=== PATIENT | male | born 1995 | race Caucasian/White ===

== ENCOUNTER 2016-12-16 02:40 | Emergency (ER) | payer BC ==
[~2016-12-16] VITALS: Ht 182.9 cm; Wt 67.9 kg
[2016-12-16 02:42] VITALS: TEMP 37; Ht 182.9 cm; Wt 67.9 kg
[2016-12-16 04:46] VITALS: BP 116/68; PULSE 94; O2SAT 97
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
== END 2016-12-16 04:47 | disposition home or self-care (01) ==
LOC: C.EDB 02:41
DX: S09.90XA Unspecified injury of head, initial encounter (principal); Y09 Assault by unspecified means